=== PATIENT | female | born 1965 | race Caucasian/White ===

== ENCOUNTER → 2017-01-18 | Outpatient (CLI) | payer OTHER ==
--- NOTE | 2017-01-19 13:25 | PCVCIMAG ---
APPROVED REPORT Exam: Stress Echocardiogram Indication: Hypertension, Hyperlipidemia Patient Location: Echo lab Stress Nurse: Leslie Olvera RN Status: routine Ht: 5 ft 4 in HR: 74 bpm Rhythm: NSR Procedure The patient underwent an Exercise Stress Test using the Hiram Protocol. Blood pressure, heart rate, and EKG were monitored. An Echocardiogram was performed by interactive video technician in four stages in quad fashion. At peak stress, four selected images were obtained and placed side by side with resting images for comparison. Stress Test Details Stress Test: Exercise stress testing was performed using a Hiram protocol. HR Resting HR: 74 bpmMax Heart Rate (APMHR): 168 bpm Max HR Achieved: 169 bpmTarget HR (85% APMHR): 142 bpm % of APMHR: 100 HR response to stress: Normal HR response to stress BP Resting BP: 118/74 mmHg Max BP: 160/74 mmHg ECG Resting ECG: Sinus Rhythm Stress ECG: Sinus Rhythm Recovery ECG: Sinus Rhythm Clinical Reason for Termination: Completed protocol, Maximal effort Exercise duration: 10 min sec Highest Stage Achieved: Stage 4: 4.2 mph at 16% grade. Exercise capacity: 13.40 METs Stress ECG Conclusion 1. SUBJECTIVELY NEGATIVE FOR ISCHEMIA 2. ELECTROCARDIOGRAPHICALLY NEGATIVE FOR ISCHEMIA 3. GOOD FUNCTIONAL CAPACITY Pre-Stress Echo The resting Echocardiogram showed normal left ventricular contractility with an estimated Ejection Fraction of about 55-60%. Normal wall motion in all segments on baseline images. Post-Stress Echo The stress Echocardiogram showed normal left ventricular contractility with an estimated Ejection Fraction of about 65-70%. Normal augmentation of wall motion in all segments on post stress images. Clinical No clinical or ECG evidence for ischemia. Conclusion Clinical Response: Non-ischemic Exercise Capacity: Average Stress ECG Response: Non-ischemic Stress Echo Images: Non-ischemic 1. LOW RISK STUDY Other Information Study Quality: Good <Conclusion> 1. LOW RISK STUDY
== END | disposition home or self-care (01) ==
LOC: PCVCIMAG 11:42
PROVIDERS: ATTEND Internal Medicine
DX: I10 Essential (primary) hypertension (principal); E78.4 Other hyperlipidemia
CPT/HCPCS: 93325; 93351

== ENCOUNTER → 2019-02-13 | Outpatient (CLI) | payer OTHER ==
--- NOTE | 2019-02-13 13:12 | PCVCIMAG ---
APPROVED REPORT Imaging Protocol: Rest Tc-99m/Stress Tc-99m 1 day Study performed: 02/13/2019 09:38:39 Indication: Chest pain Patient Location: Out-Patient Stress Nurse: Margy Reyna RN, Leslie Olvera RN [place] Tech:Milena Townsend [facility] Ht: 5 ft 4 in Wt: 175 lbs BSA: 1.85 m2 HR: 77 bpm BP: 131/91 mmHg BMI: 30.03 Rhythm: Sinus Rhythm, Incomplete RBBB Medical History Medical History: Hyperlipidemia, HTN Medications: Lisinopril, Zocor Allergies: Augmentin, Levaquin, Zoloft Pretest Chest Pain Characteristics: No chest pain Exercise History: Physically active Resting Data Rest SPECT myocardial perfusion imaging was performed in supine position 45 minutes following the intravenous injection of 11 mCi of Tc-99m Sestamibi. Time of rest injection: 1000 Date: 02/13/2019 Administration Route: IV Administration Site: Right AC Exercise Stress At peak stress, the patient was injected intravenously with 34.8mCi of Tc-99m Sestamibi. Time of stress injection: 1115 Date: 02/13/2019 Administration Route: IV Administration Site: Right AC Patient continued to exercise for 1 minute(s). Gated Stress SPECT was performed 30 minutes after stress injection. The images were gated to evaluate regional wall motion and calculate left ventricular ejection fraction. Stress Test Details Stress Test: Exercise stress testing was performed using a Hiram protocol. HRMax Heart Rate (APMHR): 166 bpm Resting HR: 77 bpmTarget HR (85% APMHR): 141 bpm Max HR Achieved: 164 bpm % of APMHR: 98 Recovery HR: 93 bpm BP Resting BP: 131/91 mmHg Max BP: 164/84 mmHg Recovery BP: 123/70 mmHg ECG Resting ECG: Sinus Rhythm, Incomplete RBBB Stress ECG: Sinus Tachycardia Arrhythmia: PVC's, PAC's Recovery ECG: Normal Sinus Rhythm Clinical Reason for Termination: Maximal effort Stress Symptoms: Dyspnea Exercise duration: 10 min 00 sec Exercise capacity: 13.4 METs Symptoms resolved during recovery. Stress ECG Conclusion 1. Subjectively negative for ischemia with only exertional dyspnea noted 2. Elective cardiographic evidence of J-point depression with upsloping ST segments with did not fill criteria for ischemia Study Data Post stress, the left ventricular ejection was 79%.. SSS: 0 SRS: 7 SDS: 0 TID = 0.58. Perfusion There is a medium area of moderately reduced uptake in the entire segment of the inferior wall which is seen on the stress images as well as the resting images. This area thickens and moves normally and is most consistent with attenuation artifact. Wall Motion Normal left ventricular wall motion. Nuclear Conclusion ECG Findings: negative for ischemia Clinical Findings: negative for ischemia Nuclear Findings: negative for ischemia Exercise Capacity: satisfactory Left Ventricular Function: normal 1. Low risk study 2. Post exercise limitation ejection fraction 79% without wall motion abnormalities <Conclusion> 1. Subjectively negative for ischemia with only exertional dyspnea noted 2. Elective cardiographic evidence of J-point depression with upsloping ST segments with did not fill criteria for ischemia
== END | disposition home or self-care (01) ==
LOC: PCVCIMAG 09:31
PROVIDERS: ATTEND Internal Medicine
DX: I10 Essential (primary) hypertension (principal); R07.9 Chest pain, unspecified; E78.5 Hyperlipidemia, unspecified; F41.9 Anxiety disorder, unspecified; Z88.1 Allergy status to other antibiotic agents; Z88.8 Allergy status to other drugs, medicaments and biological substances
CPT/HCPCS: 78452; 93017; A9500